=== PATIENT | male | born 1985 | race Caucasian/White ===

== ENCOUNTER 2018-12-18 21:46 | Emergency (ER) | payer MEDICAID ==
[~2018-12-18] VITALS: Ht 175.3 cm; Wt 68.0 kg
[2018-12-18 21:46] VITALS: BP 99/60
--- NOTE | 2018-12-18 21:46 | NUR ---
PT ARRIVED VIA AMBULANCE - NO CALL
--- NOTE | 2018-12-18 21:53 | NUR ---
PT TRIAGED, SENT TO LOBBY AWAITING FOR BED
--- NOTE | 2018-12-18 21:58 | NUR ---
PT WHEELCHAIR ASSISTED TO BED, PT AMBULATORY
--- NOTE | 2018-12-18 22:15 | NUR ---
PT BIBA C/O LEFT SIDED RIB PAIN SINCE TODAY. PT DENIES TRAUMA/INJURY. PT PAIN LEVEL 8/10, ACHING. DENIES FEVER/CHILLS. DENIES N/V/D. PT DENIES CONSUMING ALCOHOL, ONLY SMOKED MARIJUANA TODAY. NKA. MED HX: SEIZURES - PT NONCOMPLIANT WITH MEDICATIONS. SEIZURE PRECAUTIONS IMPLEMENTED. BED IN LOWEST POSITION, HOB ELEVATED, PADDED SIDE RAILS UP X2. WAITING FOR ERMD TO EVALUATE PT.
--- NOTE | 2018-12-18 23:01 | NUR ---
dr. johnson bedside evaluating pt
[2018-12-18 23:45] LABS: BARBITURATE, URINE NEG. ng/ml (NEG <=200); BENZODIAZEPINE, URINE NEG. ng/mL (NEG <=200); CANNABINOID, URINE POS. ng/mL (NEG <=50); COCAINE, URINE NEG. ng/mL (NEG <=300); OPIATE, URINE NEG. ng/mL (NEG <=2000); PHENCYCLIDINE SCREEN,URINE NEG. ng/mL (NEG <=25)
--- NOTE | 2018-12-18 23:45 | NUR ---
XRAY AT PT BEDSIDE
--- NOTE | 2018-12-19 01:50 | NUR ---
HOMELESS PACKET PROVIDED
[2018-12-19 01:54] VITALS: BP 115/61
--- NOTE | 2018-12-19 01:54 | NUR ---
Patient discharged with v/s stable. Written and verbal after care instructions given and explained. Patient alert, oriented and verbalized understanding of instructions. Ambulatory with steady gait. All questions addressed prior to discharge. ID band removed. Patient advised to follow up with PMD. Rx of aCETAMINOPHEN WAS given. Patient educated on indication of medication including possible reaction and side effects. Opportunity to ask questions provided and answered.
== END 2018-12-19 01:54 | disposition home or self-care (01) ==
LOC: MED 21:46
DX: R10.9 Unspecified abdominal pain (principal); R07.81 Pleurodynia; F17.200 Nicotine dependence, unspecified, uncomplicated; Z71.6 Tobacco abuse counseling; Z86.69 Personal history of other diseases of the nervous system and sense organs
CPT/HCPCS: 71045; 80305; 81002; 99284; Q0092

== ENCOUNTER 2021-04-04 18:14 | Emergency (ER) | payer MEDICAID ==
[~2021-04-04] VITALS: Ht 175.3 cm; Wt 66.7 kg
[2021-04-04 18:50] VITALS: BP 124/97
--- NOTE | 2021-04-04 19:07 | NUR ---
PSYCHIATRY DR REQUESTING TOXICOLOGY SCREEN AND ETOH LEVEL, THEN REASSESS AFTERWARDS. DR CLAYTON MADE AWARE
--- NOTE | 2021-04-04 19:15 | NUR ---
PT TAKEN TO MICHELLE Lyon.
--- NOTE | 2021-04-04 20:00 | NUR ---
RECEIVED IN CHAIR E WITH C/O HAVING INTERMITTENT EPISODES OF SUICIDAL IDEATION X2 MONTHS. DENIES HI, AUDITORY/VISUAL HALLUCINATIONS. MEDHX: SEIZURE ALLERGIES: NKA
[2021-04-04 20:04] LABS: BARBITURATE, URINE NEGATIVE ng/ml (NEG <=200); BENZODIAZEPINE, URINE NEGATIVE ng/mL (NEG <=200); CANNABINOID, URINE POSITIVE ng/mL (NEG <=50); COCAINE, URINE NEGATIVE ng/mL (NEG <=300); OPIATE, URINE NEGATIVE ng/mL (NEG <=2000); PHENCYCLIDINE SCREEN,URINE NEGATIVE ng/mL (NEG <=25)
--- NOTE | 2021-04-05 | NUR ---
RESTING IN CHAIR E WITH EYES CLOSED, RESPIRATIONS REGULAR AND UNLABORED. WARM BLANKETS GIVEN
--- NOTE | 2021-04-05 04:00 | NUR ---
RESTING WITH EYES CLOSED. RESPIRATIONS REGULAR AND UNLABORED
--- NOTE | 2021-04-05 06:00 | NUR ---
Patient appears to be resting comfortably in bed. Vital Signs within normal limits. Respirations even and unlabored.
--- NOTE | 2021-04-05 07:30 | NUR ---
REPORT RECEIVED FROM KATE VO FOR PATIENT CONTINUITY OF CARE.
[2021-04-05 08:00] VITALS: BP 122/83
--- NOTE | 2021-04-05 08:12 | NUR ---
PATIENT RESTING IN BED, NO SIGNS OF DISTRESS NOTED AT THIS TIME. WILL CONTINUE TO MONITOR
--- NOTE | 2021-04-05 08:30 | NUR ---
PATIENT REPORTS WANTING TO LEAVE DUE TO NOT BEING ON A HOLD. ADVISED OF TELE PSYCH AT 0900 AND PATIENT STATES "I'LL BE OKAY." ENCOURAGED PATIENT TO WAIT FOR TELE PSYCH AND PATIENT AGREES.
--- NOTE | 2021-04-05 08:45 | NUR ---
PATIENT PROVIDED WITH BREAKFAST TRAY. ALL PATIENT NEEDS MET AT THIS TIME.
--- NOTE | 2021-04-05 09:05 | NUR ---
DR. Valdes EVALUATING PATIENT VIA TELE PSYCH
--- NOTE | 2021-04-05 09:20 | NUR ---
Patient discharged with v/s stable. Written and verbal after care instructions given and explained to parent/guardian. Parent/Guardian verbalized understanding. Ambulatorysteady gait. All questions addressed prior to discharge. Advised to follow up with PMD. Patient provided with mental health and homeless packet. Patient signed homeless waiver, clothes appropriate.
== END 2021-04-05 09:20 | disposition home or self-care (01) ==
LOC: MED 18:14
DX: R45.851 Suicidal ideations (principal); G40.909 Epilepsy, unspecified, not intractable, without status epilepticus
CPT/HCPCS: 36415; 80305; 99283; G0482

== ENCOUNTER 2021-04-11 18:55 | Emergency (ER) | payer MEDICAID ==
[~2021-04-11] VITALS: Ht 175.3 cm; Wt 68.0 kg
[2021-04-11 19:13] VITALS: BP 113/59
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
--- NOTE | 2021-04-11 19:34 | NUR ---
Dr. Mendiola examining patient.
[2021-04-11 20:47] LABS: BASOPHILS # (AUTO) 0.1 K/uL (0.00-0.22); BASOPHILS % (AUTO) 0.8 % (0.0-2.0); EOSINOPHILS # (AUTO) 0.3 K/uL (0-0.4); EOSINOPHILS % (AUTO) 3.4 % (0.0-4.0); HEMATOCRIT 41.4 % (36-52); LYMPHOCYTES # (AUTO) 1.7 K/uL (2.0-11.5); LYMPHOCYTES % (AUTO) 18.7 % (20.5-51.1); MEAN CORPUSCULAR HEMOGLOBIN 33 pg (27-31); MEAN CORPUSCULAR HGB CONC 34 g/dL (33-37); MEAN CORPUSCULAR VOLUME 97.7 fL (80-94); MONOCYTES # (AUTO) 0.7 K/uL (0.8-1.0); MONOCYTES % (AUTO) 7.4 % (1.7-9.3); NEUTROPHILS # (AUTO) 6.5 K/uL (1.8-7.7); NEUTROPHILS % (AUTO) 69.7 % (42.2-75.2); PLATELET COUNT (AUTO) 187 K/uL (140-450); RED BLOOD CELL COUNT(AUTO) 4.23 MIL/uL (4.20-6.10); RED CELL DISTRIBUTION WIDTH 15.2 % (11.6-13.7); WHITE BLOOD COUNT (AUTO) 9.3 K/uL (4.8-10.8)
[2021-04-11 21:29] LABS: ALBUMIN 3.4 g/dL (3.4-5.0); ANION GAP 16.3 (8-16); ASPARTATE AMINOTRANSFERASE 33 U/L (15-37); CARBON DIOXIDE 30.8 mmol/L (21-32); CHLORIDE 106 mmol/L (98-107); CREATININE 0.9 mg/dL (0.6-1.3); GFR ARICAN-AMERICAN 123 mL/min (>90); GLUCOSE 91 mg/dL (74-106); POTASSIUM 4.1 mmol/L (3.5-5.1); SALICYLATE 6.4 mg/dL (2.8-20.0); SODIUM SERUM 149 mmol/L (136-145); TOTAL BILIRUBIN 0.3 mg/dL (0.0-1.0); UREA NITROGEN, BLOOD 7 mg/dL (7-18)
--- NOTE | 2021-04-11 22:00 | NUR ---
resting in chair with eyes closed, respirations regular and unlabore
[2021-04-11 22:30] LABS: ACETAMINOPHEN < 0.5 ug/ml (10-30)
--- NOTE | 2021-04-12 00:12 | NUR ---
TELEPSYCH DOCTOR SPEAKING WITH DR. LEON
--- NOTE | 2021-04-12 00:12 | NUR ---
TELEPSYCH DOCTOR SPEAKING WITH PATIENT
--- NOTE | 2021-04-12 00:20 | NUR ---
TELEPSYCH SPOKE TO PT AND DECIDED THAT PT SHOULD NOT BE ON A HOLD.
--- NOTE | 2021-04-12 05:34 | NUR ---
PT AMBULATES TO RESTROOM WITHOUT ASSISTANCE
[2021-04-12 05:52] VITALS: BP 128/62
--- NOTE | 2021-04-12 05:53 | NUR ---
Patient discharged with v/s stable. Written and verbal after care instructions given and explained. Patient verbalized understanding. Ambulatory with steady gait. All questions addressed prior to discharge. Advised to follow up with PMD.
== END 2021-04-12 05:53 | disposition home or self-care (01) ==
LOC: MED 18:55
DX: R45.851 Suicidal ideations (principal)
CPT/HCPCS: 80053; 85025; 93005; 99285; G0480; G0482; 99284

== ENCOUNTER 2021-05-02 18:11 | Emergency (ER) | payer MEDICAID ==
[~2021-05-02] VITALS: Ht 175.3 cm; Wt 68.0 kg
[2021-05-02 18:13] VITALS: BP 124/74
--- NOTE | 2021-05-02 18:15 | NUR ---
BIBA TO BED 03
[2021-05-02] MEDS ORDERED: chlordiazePOXIDE 25 MG CAP PO SCH (18:25)
--- NOTE | 2021-05-02 18:25 | NUR ---
36 y/o M BIBA; homeless c/o headache x 1 hour prior to arrival. Patient A&Ox4, ambulatory, reports headache 6/10 pain; states this is aura prior to having a seizure. Pt reports prescribed Depakote, however, did not take his medication this morning. Denies chest pain, cough, nausea, vomiting, blurry vision, SOB, urinary incontinence, oral trauma, fall/injury. Pt placed onto dental director HR 107. Pt states hx alcoholism, has "a few drinks" per day; last drink yesterday. Bed locked in lowest position, side rails x 1. PMH: seizures Meds: Depakote NKDA
[2021-05-02] MEDS ORDERED: PERM5CRE3 TP ×2 (18:28→18:31)
[2021-05-02] MEDS ORDERED: DIVA250T PO ×2 (18:28→18:31)
--- NOTE | 2021-05-02 18:28 | NUR ---
Dr. Zhou is evaluating pt at bedside
--- NOTE | 2021-05-02 19:15 | NUR ---
Homeless waiver signed; patient provided with homeless resource packet and alcohol substance abuse packet. [place] and food bag provided per request. States has transportation and will seek half-way to shower tomorrow.
--- NOTE | 2021-05-02 19:20 | NUR ---
Patient discharged with v/s stable. Written and verbal after care instructions given and explained. Patient alert, oriented and verbalized understanding of instructions. Ambulatory with steady gait. All questions addressed prior to discharge. ID band removed. Patient advised to follow up with PMD. Rx of Permethrin, Depakote given. Patient educated on indication of medication including possible reaction and side effects. Opportunity to ask questions provided and answered.
== END 2021-05-02 19:20 | disposition home or self-care (01) ==
LOC: MED 18:11
DX: F10.239 Alcohol dependence with withdrawal, unspecified (principal); B86 Scabies; R51.9 Headache, unspecified; R56.9 Unspecified convulsions; Z79.899 Other long term (current) drug therapy
CPT/HCPCS: 99283

== ENCOUNTER 2021-05-06 19:20 | Emergency (ER) | payer MEDICAID ==
[~2021-05-06] VITALS: Ht 175.3 cm; Wt 77.1 kg
[2021-05-06 19:20] VITALS: BP 107/63
[~2021-05-06 19:20] MED LIST: DIVA250T PO; PERM5CRE3 TP
--- NOTE | 2021-05-06 19:20 | NUR ---
TO LOBBY A/W BED AMBULATORY , BIBA WITH C/O DIZZINESS, AND ITCHINESS
--- NOTE | 2021-05-06 22:59 | NUR ---
Dr. Garcia at [facility] to exam patient.
--- NOTE | 2021-05-06 23:30 | NUR ---
CALLED FOR PT IN LOBBY AND OUTSIDE, NO RESPONSE.
== END 2021-05-06 23:30 | disposition left against medical advice (07) ==
LOC: MED 19:20
DX: L29.9 Pruritus, unspecified (principal); Z53.21 Procedure and treatment not carried out due to patient leaving prior to being seen by health care provider